=== PATIENT | female | born 1995 | race American Indian/Alaskan Native ===

== ENCOUNTER 2016-10-09 21:27 | Emergency (ER) | payer SELFPAY ==
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
[2016-10-09] MEDS ORDERED: Sodium Chloride 0.9% 1,000 ML IV ONE (22:27)
[2016-10-09] MEDS ORDERED: Ondansetron 4 MG/2 ML SDV IV ONE (22:27)
[2016-10-09] MEDS ORDERED: diphenhydrAMINE 50 MG/ML SDV IVPUSH ONE (22:57)
[2016-10-09] MEDS ORDERED: Ketorolac 30 MG/ML SDV IVPUSH ONE (22:57)
[2016-10-09 23:29] VITALS: BP 110/74
== END 2016-10-09 23:31 | disposition home or self-care (01) ==
LOC: DL.ED 21:27
DX: G44.209 Tension-type headache, unspecified, not intractable (principal)
CPT/HCPCS: 70450; 96361; 96374; 96375; 99284; J1200; J1885; J2405; J7030

== ENCOUNTER 2019-03-21 19:31 | Emergency (ER) | payer OTHER ==
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
[2019-03-21 20:43] LABS: ANION GAP 11.6; CHLORIDE,CL 104 mmol/L (101-111); SODIUM,NA 138 mmol/L (135-145)
[2019-03-21 21:28] VITALS: BP 115/63; PULSE 86
[2019-03-21] MEDS ORDERED: Ketorolac 30 MG/ML SDV IM ONE (21:32)
== END 2019-03-21 21:53 | disposition home or self-care (01) ==
LOC: DL.ED 19:31
DX: S20.211A Contusion of right front wall of thorax, initial encounter (principal); V67.5XXA Driver of heavy transport vehicle injured in collision with fixed or stationary object in traffic accident, initial encounter
CPT/HCPCS: 36415; 71101-RT; 80048; 81025; 85027; 99284-25

== ENCOUNTER 2019-07-18 15:04 | Emergency (ER) | payer OTHER ==
[2019-07-18 15:23] VITALS: BP 121/81; PULSE 80
[2019-07-18] MEDS ORDERED: Ketorolac 30 MG/ML SDV IVPUSH ONE (16:46)
[2019-07-18] MEDS ORDERED: fentaNYL 100 MCG/2 ML SDV IVPUSH ONE (17:02)
[2019-07-18] MEDS ORDERED: Iopamidol 612 MG/ML 100 ML Bottle IVPUSH ONE (17:04)
[2019-07-18] MEDS ORDERED: Ondansetron 4 MG/2 ML SDV IVPUSH ONE (17:13)
[2019-07-18 17:19] LABS: ANION GAP 13.6; CHLORIDE,CL 104 mmol/L (101-111); SODIUM,NA 137 mmol/L (135-145)
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
== END 2019-07-18 19:19 | disposition home or self-care (01) ==
LOC: DL.ED 15:04
DX: N73.0 Acute parametritis and pelvic cellulitis (principal)
CPT/HCPCS: 36415; 74177; 80053; 80305; 81003; 81025; 83605; 85025; 85651; 86140; 96374; 96375; 99284; J1885; J2405; J3010; Q9967; 74176; 99283

== ENCOUNTER 2021-06-12 11:49 | Emergency (ER) | payer MEDICAID ==
[2021-06-12 12:47] LABS: ANION GAP 15.1 mEq/L (7-13); CHLORIDE,CL 103 mmol/L (98-107); SODIUM,NA 140 mmol/L (136-145)
== END 2021-06-12 13:25 | disposition home or self-care (01) ==
LOC: DL.ED 11:49
DX: M25.512 Pain in left shoulder (principal); M25.562 Pain in left knee; E03.9 Hypothyroidism, unspecified; Z79.899 Other long term (current) drug therapy
CPT/HCPCS: 36415; 73030-LT; 73560-LT; 80053; 81003; 84703; 85025; 99283

== ENCOUNTER 2022-11-16 07:25 | Emergency (ER) | payer MEDICAID ==
[2022-11-16] MEDS ORDERED: Sodium Chloride 0.9% 10 ML Syringe FLUSH PRN (07:33)
[2022-11-16 07:45] LABS: HEMATOCRIT 37.9 % (37.0-47.0); HEMOGLOBIN 12.7 g/dL (12.0-16.0); MEAN CORPUSCULAR HEMOGLOBIN 27.9 pg (27.0-34.0); MEAN CORPUSCULAR HGB CONC 33.5 g/dL (33.0-35.0); MEAN CORPUSCULAR VOLUME 83.3 fL (80-100); PLATELET COUNT,PLT 166 10^3/uL (150-450); RED BLOOD CELL COUNT 4.55 10^6/uL (4.2-5.4); WHITE BLOOD CELL COUNT,WBC 7.9 10^3/uL (5.0-10.0)
[2022-11-16 07:48] VITALS: BP 128/77; PULSE 91
[2022-11-16 08:00] LABS: APPEARANCE,URINE CLEAR (CLEAR); BILIRUBIN,URINE NEGATIVE (NEGATIVE); COLOR,URINE YELLOW (YELLOW); GLUCOSE,URINE NEGATIVE (NEGATIVE); KETONES,URINE NEGATIVE (NEGATIVE); LEUKOCYTE ESTERASE,URINE NEGATIVE (NEGATIVE); NITRITE,URINE NEGATIVE (NEGATIVE); OCCULT BLOOD,URINE NEGATIVE (NEGATIVE); PROTEIN,URINE NEGATIVE (NEGATIVE); UROBILINOGEN,URINE 0.2 mg/dL (0.2-1.0)
[2022-11-16 08:00] LABS: BASOPHILS PERCENT AUTO 0.3 % (0.0-1.0); EOSINOPHILS PERCENT AUTO 0.4 % (1.0-3.0); LYMPHOCYTES PERCENT AUTO 33.3 % (20.5-50.1); MONOCYTES PERCENT AUTO 12.3 % (2-8); NEUTROPHILS PERCENT AUTO 53.7 % (42.2-75.2)
[2022-11-16 08:12] LABS: LYMPHOCYTES PERCENT MAN 35 % (20-50); MONOCYTES PERCENT MAN 5 % (2-8); SEG NEUTROPHILS PERCENT MAN 60 % (42-75)
[2022-11-16 08:13] LABS: ALBUMIN 2.5 g/dL (3.4-5.0); ANION GAP 12.6 mEq/L (7-13); BILIRUBIN TOTAL 0.3 mg/dL (0.2-1.0); BUN/CREATININE RATIO 7.5 (No establ ref range); CALCIUM 8.3 mg/dL (8.5-10.1); CREATININE 0.67 mg/dL (0.55-1.02); EST CRCL DRUG DOSING (CG) 115.5 mL/min; MAGNESIUM 1.7 mg/dL (1.8-2.4); POTASSIUM,K 3.6 mmol/L (3.5-5.1); PROTEIN TOTAL,TP 6.3 g/dL (6.4-8.2); TSH ULTRASENSITIVE 0.28 uIU/mL (0.36-3.74)
[2022-11-16 08:14] LABS: A/G RATIO 0.66
[2022-11-16 08:16] LABS: INR 0.8 (0.9-1.2); PROTHROMBIN TIME 8.4 SEC (9.0-12.0); PTT,PARTIAL THROMBOPLSTIN TIME 24.7 SEC (22.0-34.0)
[2022-11-16] MEDS ORDERED: GI Cocktail Oral Solution 30 ML PO ONE (08:42)
== END 2022-11-16 09:37 | disposition home or self-care (01) ==
LOC: DL.ED 07:25
DX: O99.891 Other specified diseases and conditions complicating pregnancy (principal); R07.89 Other chest pain; R06.02 Shortness of breath; O99.282 Endocrine, nutritional and metabolic diseases complicating pregnancy, second trimester; E03.9 Hypothyroidism, unspecified; Z79.899 Other long term (current) drug therapy; Z3A.18 18 weeks gestation of pregnancy
CPT/HCPCS: 36415; 71045; 80053; 81003; 82150; 83690; 83735; 84443; 84484; 85025; 85610; 85730; 93005; 99285; A9270; 93010; 99283; J3490

== ENCOUNTER 2023-03-26 00:07 | Inpatient (IN) | payer MEDICAID, BC ==
[~2023-03-26 00:07] MED LIST: Acetaminophen 325 MG Tab PO PRN; Carboprost Tromethamine 250 MCG/1 ML Amp IM PRN; Lactated Ringers 1,000 ML IV ONE; Lactated Ringers 1,000 ML IV SCH; Lidocaine 1% 30 ML SDV INJECT ONE; Methylergonovine 0.2 MG/1 ML Amp IM PRN; Misoprostol 25 MCG (1/4 of 100 MCG) Tab VAG PRN; Misoprostol 400 MCG (4 X 100 MCG TAB) RECTAL PRN; Misoprostol 50 MCG (1/2 of 100 MCG) Tab VAG ONE; Ondansetron 4 MG/2 ML SDV IVPUSH PRN; Oxytocin 10 Units/1 ML SDV IM ONE; Oxytocin/Normal Saline 30 UNIT/500 ML BAG IV SCH; Sodium Chloride 0.9% 10 ML Syringe FLUSH PRN; Tranexamic Acid 1,000 MG in Sodium Chloride 0.9% 100 ML IV PRN; fentaNYL 100 MCG/2 ML SDV IVPUSH PRN
[2023-03-26 00:51] LABS: HEMATOCRIT 35.5 % (37.0-47.0); HEMOGLOBIN 11.9 g/dL (12.0-16.0); MEAN CORPUSCULAR HEMOGLOBIN 28.8 pg (27.0-34.0); MEAN CORPUSCULAR HGB CONC 33.5 g/dL (33.0-35.0); RED BLOOD CELL COUNT 4.13 10^6/uL (4.2-5.4); WHITE BLOOD CELL COUNT,WBC 12.4 10^3/uL (5.0-10.0)
[2023-03-26 01:08] LABS: ALANINE AMINOTRANSFERASE,ALT 21 U/L (14-59); ASPARTATE AMNIOTRANSFERASE,AST 18 U/L (15-37); BLOOD UREA NITROGEN,BUN 14 mg/dL (7-18); CREATININE 0.82 mg/dL (0.55-1.02); ESTIMATED GFR 101 mL/min (>=60); LACTATE DEHYDROGENASE,LDH 174 U/L (81-234); URIC ACID 4.3 mg/dL (2.6-6.0)
[2023-03-26 02:32] LABS: APPEARANCE,URINE CLEAR (CLEAR); BILIRUBIN,URINE NEGATIVE (NEGATIVE); COLOR,URINE YELLOW (YELLOW); GLUCOSE,URINE NEGATIVE (NEGATIVE); KETONES,URINE NEGATIVE (NEGATIVE); LEUKOCYTE ESTERASE,URINE TRACE (NEGATIVE); NITRITE,URINE NEGATIVE (NEGATIVE); OCCULT BLOOD,URINE NEGATIVE (NEGATIVE); PROTEIN,URINE NEGATIVE (NEGATIVE); UROBILINOGEN,URINE 0.2 mg/dL (0.2-1.0)
[2023-03-26 02:54] LABS: PROTEIN,URINE RANDOM < 6.0 mg/dL (0.0-11.9)
[2023-03-26 02:56] LABS: CREATININE,URINE RAND 19.22 mg/dL (No establ ref range)
[2023-03-26] MEDS ORDERED: fentaNYL 100 MCG/2 ML SDV ONE (12:37)
[2023-03-26] MEDS ORDERED: Bupivacaine 0.25% 10 ML SDV ONE (12:37)
[2023-03-26] MEDS ORDERED: fentaNYL 100 MCG/2 ML SDV IV ONE (12:37)
[2023-03-26] MEDS ORDERED: Phenylephrine HCl In 0.9% NaCl 1 MG/10 ML Syringe IVPUSH PRN (13:31)
[2023-03-26] MEDS ORDERED: ePHEDrine 50 MG/ML SDV IVPUSH PRN ×2 (13:31→19:57)
[2023-03-26] MEDS ORDERED: Ropivacaine 200 MG in Premix Bag 1 BAG EPIDUR SCH (13:45)
[2023-03-26] MEDS ORDERED: Tranexamic Acid 1,000 MG in Sodium Chloride 0.9% 100 ML IV PRN ×2 (16:24→19:57)
[2023-03-26] MEDS ORDERED: Citric Acid/Sodium Citrate Solution 30 ML Cup PO ONE (16:24)
[2023-03-26] MEDS ORDERED: ceFAZolin 2 GM Vial IVPUSH ONE (16:24)
[2023-03-26] MEDS ORDERED: Methylergonovine 0.2 MG Tab PO PRN (16:24)
[2023-03-26] MEDS ORDERED: Lactated Ringers 1,000 ML IV SCH ×2 (16:30)
[2023-03-26] MEDS ORDERED: Oxytocin/Normal Saline 30 UNIT/500 ML BAG IV SCH (16:30)
[2023-03-26] MEDS ORDERED: ceFAZolin 1 GM Vial ONE (16:34)
[2023-03-26] MEDS ORDERED: Oxytocin/Normal Saline 30 UNIT/500 ML BAG ONE (16:34)
[2023-03-26] MEDS ORDERED: ceFAZolin 2 GM Vial ONE (16:34)
[2023-03-26] MEDS ORDERED: diphenhydrAMINE 50 MG/ML SDV IVPUSH PRN (19:57)
[2023-03-26] MEDS ORDERED: Acetaminophen 325 MG Tab PO PRN (19:57)
[2023-03-26] MEDS ORDERED: Docusate Sodium 100 MG Cap PO PRN (19:57)
[2023-03-26] MEDS ORDERED: Naloxone 2 MG/2 ML Syringe IVPUSH PRN (19:57)
[2023-03-26] MEDS ORDERED: Ondansetron 4 MG/2 ML SDV IVPUSH PRN (19:57)
[2023-03-26] MEDS ORDERED: Acetaminophen/oxyCODONE 325-5 MG Tab PO PRN (19:57)
[2023-03-26] MEDS ORDERED: Ketorolac 30 MG/ML SDV IVPUSH SCH (20:00)
[2023-03-26] MEDS: Simethicone 80 MG Tab.Chew PO SCH (22:24)
[2023-03-26] MEDS: Lactated Ringers 1,000 ML IV SCH (22:24)
[2023-03-27] MEDS: Ketorolac 30 MG/ML SDV IVPUSH SCH ×3 (00:24→15:09)
[2023-03-27] MEDS: Lactated Ringers 1,000 ML IV SCH (06:23)
[2023-03-27 06:57] LABS: HEMATOCRIT 29.7 % (37.0-47.0); HEMOGLOBIN 9.8 g/dL (12.0-16.0); MEAN CORPUSCULAR HEMOGLOBIN 28.7 pg (27.0-34.0); MEAN CORPUSCULAR VOLUME 87.1 fL (80-100); RED BLOOD CELL COUNT 3.41 10^6/uL (4.2-5.4); WHITE BLOOD CELL COUNT,WBC 17.1 10^3/uL (5.0-10.0)
[2023-03-27] MEDS: Prenatal Multivitamin with Calcium/Folic Acid/Iron Tab PO SCH (08:25)
[2023-03-27] MEDS: Simethicone 80 MG Tab.Chew PO SCH ×4 (08:25→21:02)
[2023-03-27] MEDS: Acetaminophen/oxyCODONE 325-5 MG Tab PO PRN ×3 (08:25→18:52)
[2023-03-27] MEDS ORDERED: Ketorolac 30 MG/ML SDV IM ONE (14:30)
[2023-03-27] MEDS: Ibuprofen 800 MG Tab PO PRN (21:02)
[2023-03-28] MEDS: Acetaminophen/oxyCODONE 325-5 MG Tab PO PRN ×3 (02:46→12:29)
[2023-03-28] MEDS: Ibuprofen 800 MG Tab PO PRN (06:05)
[2023-03-28] MEDS: Prenatal Multivitamin with Calcium/Folic Acid/Iron Tab PO SCH (08:13)
[2023-03-28] MEDS: Simethicone 80 MG Tab.Chew PO SCH ×2 (08:13→12:29)
[2023-03-28 14:47] VITALS: BP 121/68; PULSE 79
== END 2023-03-28 14:20 | disposition home or self-care (01) | DRG 788 ==
LOC: DL.OB 00:07 → OBSVTOIN 17:18 → DL.OB 17:18
PROVIDERS: ADMIT Family Medicine; ATTEND Family Medicine
PROC: 10907ZC Drainage of Amniotic Fluid, Therapeutic from Products of Conception, Via Natural or Artificial Opening (ICD-10-PCS; 2023-03-26)
PROC: 3E0P7VZ Introduction of Hormone into Female Reproductive, Via Natural or Artificial Opening (ICD-10-PCS; 2023-03-26)
PROC: 3E0R3BZ Introduction of Anesthetic Agent into Spinal Canal, Percutaneous Approach (ICD-10-PCS; 2023-03-26)
PROC: 00HU33Z Insertion of Infusion Device into Spinal Canal, Percutaneous Approach (ICD-10-PCS; 2023-03-26)
PROC: 10D00Z1 Extraction of Products of Conception, Low, Open Approach (ICD-10-PCS; principal; 2023-03-26 17:00)
DX: O13.4 Gestational [pregnancy-induced] hypertension without significant proteinuria, complicating childbirth (principal); Z37.0 Single live birth; O99.02 Anemia complicating childbirth; O99.284 Endocrine, nutritional and metabolic diseases complicating childbirth; E03.9 Hypothyroidism, unspecified; O99.814 Abnormal glucose complicating childbirth; O77.9 Labor and delivery complicated by fetal stress, unspecified; O99.214 Obesity complicating childbirth; O45.93 Premature separation of placenta, unspecified, third trimester; Z3A.37 37 weeks gestation of pregnancy; Z28.39 Other underimmunization status; Z79.899 Other long term (current) drug therapy
CPT/HCPCS: 36415; 51702; 59409; 81003; 82565; 82570; 83615; 84156; 84450; 84460; 84520; 84550; 85027; 86850; 86900; 86901; A9270-GY; J1885; J2405; J2590; J2795; J3010; J7120

== ENCOUNTER 2023-12-14 07:07 | Emergency (ER) | payer BC, MEDICAID ==
[2023-12-14 07:21] VITALS: PULSE 70
[2023-12-14 07:25] VITALS: BP 140/93
[2023-12-14] MEDS: Acetaminophen 500 MG Tab PO ONE (07:37)
[2023-12-14 07:41] LABS: APPEARANCE,URINE SLIGHTLY CLOUDY (CLEAR); BILIRUBIN,URINE NEGATIVE (NEGATIVE); COLOR,URINE YELLOW (YELLOW); GLUCOSE,URINE NEGATIVE (NEGATIVE); KETONES,URINE NEGATIVE (NEGATIVE); LEUKOCYTE ESTERASE,URINE MODERATE (NEGATIVE); NITRITE,URINE NEGATIVE (NEGATIVE); OCCULT BLOOD,URINE MODERATE (NEGATIVE); PROTEIN,URINE TRACE (NEGATIVE); UROBILINOGEN,URINE 0.2 mg/dL (0.2-1.0)
[2023-12-14 08:15] LABS: WBC,URINE 20-30 /HPF (0-5/HPF)
[2023-12-14 08:16] LABS: BACTERIA,URINE MODERATE /HPF (0-FEW/HPF); EPITHELIAL CELLS,URINE MANY /HPF (NOT SEEN); MUCUS,URINE FEW /LPF (NOT SEEN); RBC,URINE 0-5 /HPF (0-5)
[2023-12-14] MEDS: cefTRIAXone 1 GM, Lidocaine 1% 2.1 ML IM ONE (08:26)
== END 2023-12-14 10:20 | disposition home or self-care (01) ==
LOC: DL.ED 07:07
DX: K80.20 Calculus of gallbladder without cholecystitis without obstruction (principal); M54.50 Low back pain, unspecified; N39.0 Urinary tract infection, site not specified; E03.9 Hypothyroidism, unspecified; Z79.890 Hormone replacement therapy
CPT/HCPCS: 74176; 76705; 81001; 81025; 87086; 96372; 99284; A9270; J0696; J3490

== ENCOUNTER 2024-12-17 03:36 | Emergency (ER) | payer BC, MEDICAID ==
[2024-12-17] MEDS: Iopamidol 755 Mg/ML 100 ML Bottle IVPUSH ONE (03:57)
[2024-12-17] MEDS ORDERED: Sodium Chloride 0.9% 10 ML Syringe FLUSH PRN (03:59)
[2024-12-17 04:20] LABS: HCG QUALITATIVE,SERUM NEGATIVE (NEGATIVE)
[2024-12-17 04:24] LABS: A/G RATIO 1.0; ALANINE AMINOTRANSFERASE,ALT 33 U/L (14-59); ASPARTATE AMNIOTRANSFERASE,AST 21 U/L (15-37); BILIRUBIN TOTAL 0.3 mg/dL (0.2-1.0); BLOOD UREA NITROGEN,BUN 10 mg/dL (7-18); CARBON DIOXIDE,CO2 26 mmol/L (21-32); CHLORIDE,CL 107 mmol/L (98-107); CREATININE 0.83 mg/dL (0.55-1.02); ESTIMATED GFR 98 mL/min (>=60); ETHANOL BLOOD MEDICAL 87 mg/dL (0); GLUCOSE RANDOM 100 mg/dL (70-99); POTASSIUM,K 3.9 mmol/L (3.5-5.1); PROTEIN TOTAL,TP 7.9 g/dL (6.4-8.2); SODIUM,NA 141 mmol/L (136-145)
[2024-12-17 05:35] LABS: APPEARANCE,URINE CLEAR (CLEAR); GLUCOSE,URINE NEGATIVE (NEGATIVE); OCCULT BLOOD,URINE NEGATIVE (NEGATIVE)
[2024-12-17 05:36] LABS: AMPHETAMINES,URINE NEGATIVE (NEGATIVE); BARBITURATES,URINE NEGATIVE (NEGATIVE); MDMA (ECSTASY), URINE NEGATIVE (NEGATIVE); METHAMPHETAMINES,URINE NEGATIVE (NEGATIVE); OPIATES,URINE NEGATIVE (NEGATIVE); OXYCODONE,URINE NEGATIVE (NEGATIVE); PHENCYCLIDINE,URINE NEGATIVE (NEGATIVE); TCA,URINE NEGATIVE (NEGATIVE)
[2024-12-17] MEDS: Diphtheria,Pertussis(Acell),Tetanus Vaccine 0.5 ML Syringe IM ONE (06:10)
[2024-12-17] MEDS: Take Home: Acetaminophen/HYDROcodone 325-5 MG, 5 Tab Pack PO ONE (07:15)
[2024-12-17] MEDS: Ondansetron 4 MG/2 ML SDV IVPUSH ONE (07:15)
[2024-12-17] MEDS: Ondansetron 4 MG/2 ML SDV ONE (07:17)
== END 2024-12-17 07:59 | disposition home or self-care (01) ==
LOC: DL.ED 03:36 → EEVIPCON 03:36 → DL.ED 07:59
DX: S02.2XXB Fracture of nasal bones, initial encounter for open fracture (principal); S80.01XA Contusion of right knee, initial encounter; S00.81XA Abrasion of other part of head, initial encounter; E03.9 Hypothyroidism, unspecified; Z79.890 Hormone replacement therapy; Z79.899 Other long term (current) drug therapy; V86.95XA Unspecified occupant of 3- or 4- wheeled all-terrain vehicle (ATV) injured in nontraffic accident, initial encounter
CPT/HCPCS: 36415; 70450; 70486; 71260; 72125; 73562; 74177; 80053; 80305; 80307; 81003; 84703; 90471; 90715; 96374; 96375; 99284; A9270; J0690; J1171; J2405; Q9967